=== PATIENT | female | born 1955 | race Caucasian/White ===

== ENCOUNTER → 2016-09-12 | Outpatient (CLI) | payer BC ==
[~2016-09-12] MED LIST: ATOR10TA PO; CPR500T PO; FAMO-119 PO; FLUT16SP IH; GUAI600T3; LISI-595 PO; LOPE2CAP29 PO; METH4TAB27 PO; OMEP20CA6; ONDAN4ODT PO; PRM25T PO; bp med; cholesterol med
--- NOTE | 2016-09-12 10:29 | Diagnostic Imaging Report ---
INDICATION: Right heel pain. 3 views of the right foot show no fracture, dislocation, or other acute abnormality. IMPRESSION: Negative right foot. Dictated by: Dictated on workstation # [id number]
== END ==
LOC: RAD 10:02
PROVIDERS: ATTEND Nurse Practitioner Family
DX: M79.671 Pain in right foot (principal)